=== PATIENT | female | born 1995 | race Caucasian/White ===

== ENCOUNTER 2022-01-05 22:04 | Emergency (ER) | payer OTHER ==
[~2022-01-05] VITALS: Ht 167.6 cm; Wt 76.7 kg
[~2022-01-05 22:04] MED LIST: DOCU-300 PO; FERR-252 PO; IBUP-974 PO
[2022-01-05 22:24] VITALS: BP 128/85
--- NOTE | 2022-01-05 22:33 | NUR ---
PT TAKEN TO BED 4
[2022-01-05] MEDS ORDERED: ACETAMINOPHEN EXTRA STRENGTH 500 MG TAB PO ONE ×2 (22:35)
[2022-01-05] MEDS ORDERED: ACETAMINOPHEN EXTRA STRENGTH 500 MG TAB ONE (22:36)
--- NOTE | 2022-01-05 22:37 | NUR ---
26 Y/O FEMALE BIBS FROM HOME, C/O FEVER, NAUSEA, AND BACK PAIN X3 DAYS. PT DENIESAPETITE, CP, OR COUGH. PT HAS TAKEN OTC TYLENOL AND IBUPROFEN FOR PAIN.LAST TOOK IBUPROFEN AT 1800. A/OX4, GCS-15; UNLABORED BREATHING AND SPEAKING IN FULL SENTENCES; AMBULATORY W/O ASSISTANCE. PT DENIES PMH/RX NKA
[2022-01-05] MEDS ORDERED: KETOROLAC 30 MG/ML VIAL IM ONE (23:25)
[2022-01-05 23:41] LABS: APPEARANCE,URINE SL CLOUDY (CLEAR); BILIRUBIN,URINE NEGATIVE (NEGATIVE); BLOOD, URINE 2+ (NEGATIVE); COLOR,URINE YELLOW (YELLOW); LEUKOCYTE ESTERASE ,URINE 2+ (NEGATIVE); NITRITE, URINE NEGATIVE (NEGATIVE); UGLUCOSE NEGATIVE (NEGATIVE)
[2022-01-05 23:53] LABS: RBC,URINE 0-5 /HPF (0-5); WBC,URINE TOO MANY TO COUNT /HPF (0-5)
[2022-01-06] MEDS ORDERED: cefTRIAXone 1,000 MG in LIDOCAINE MPF 1% 2.1 ML IM ONE (00:05)
--- NOTE | 2022-01-06 00:05 | NUR ---
ER MD AT BEDSIDE TALKING WITH PT
[2022-01-06] MEDS ORDERED: IBUP-2213 PO (00:23)
[2022-01-06] MEDS ORDERED: SULF-59 PO (00:23)
[2022-01-06] MEDS ORDERED: cefTRIAXone 1,000 MG VIAL ONE (00:25)
[2022-01-06] MEDS ORDERED: KETOROLAC 15 MG/ML VIAL IVP ONE (00:25)
[2022-01-06] MEDS ORDERED: HYDROcodone/APAP 7.5/325 MG 1 TAB PO ONE (01:55)
--- NOTE | 2022-01-06 02:02 | NUR ---
RESOURCE RECOVERY ENGINEER AT BEDSIDE
[2022-01-06 02:07] LABS: BASOPHILS % (AUTO) 0.2 % (0.0-2.0); EOSINOPHILS % (AUTO) 0.2 % (0.0-4.0); HEMATOCRIT 30.9 % (36-48); HEMOGLOBIN 10.1 g/dL (12.0-16.0); LYMPHOCYTES # (AUTO) 1.8 K/uL (2.5-16.5); LYMPHOCYTES % (AUTO) 14.2 % (20.5-51.1); MEAN CORPUSCULAR HEMOGLOBIN 26 pg (27-31); MEAN CORPUSCULAR HGB CONC 33 g/dL (33-37); MEAN CORPUSCULAR VOLUME 78.4 fL (80-94); MONOCYTES # (AUTO) 0.6 K/uL (0.8-1.0); MONOCYTES % (AUTO) 4.9 % (1.7-9.3); NEUTROPHILS # (AUTO) 10.5 K/uL (1.8-7.7); NEUTROPHILS % (AUTO) 80.5 % (42.2-75.2); PLATELET COUNT (AUTO) 278 K/uL (140-450); RED BLOOD CELL COUNT(AUTO) 3.95 MIL/uL (4.20-5.40); RED CELL DISTRIBUTION WIDTH 15.8 % (11.6-13.7)
[2022-01-06 02:36] LABS: ALBUMIN 2.8 g/dL (3.4-5.0); ANION GAP 9.2 (8-16); CARBON DIOXIDE 27.9 mmol/L (21-32); CREATININE 0.7 mg/dL (0.6-1.3); POTASSIUM 3.1 mmol/L (3.5-5.1); TOTAL BILIRUBIN 0.8 mg/dL (0.0-1.0)
[2022-01-06] MEDS ORDERED: POTASSIUM CHLORIDE 10 MEQ TABER PO ONE (03:10)
--- NOTE | 2022-01-06 03:12 | NUR ---
PT RETURN FROM CT
--- NOTE | 2022-01-06 07:15 | NUR ---
GAVE TRANSFER OF CARE REPORT TO BARRIE HAILE
--- NOTE | 2022-01-06 07:24 | NUR ---
REPORT RECIEVED FROM LATASHA LOPEZ
--- NOTE | 2022-01-06 08:07 | NUR ---
26YR OLD FEMALE C/O FLANK BACK PAIN X 3DAYS. PAIN 3. PT STATES HAVING A FEVER AND NAUSEA. DENIES PAIN WITH URINATION. DENIES CP SOB. PT RESTING IN BED RESP EVEN AND UNLABORED. PENDING CT RESULTS . PENDING DC. SIDE RAILS UP X2 BED AT LOWEST POSITION. NKDA NO MED HX
[2022-01-06 08:34] VITALS: BP 90/51
--- NOTE | 2022-01-06 08:34 | NUR ---
Patient discharged with v/s stable. Written and verbal after care instructions given and explained. Patient alert, oriented and verbalized understanding of instructions. Ambulatory with steady gait. All questions addressed prior to discharge. ID band removed. Patient advised to follow up with PMD. Rx of IBUPROFEN BACTRIM given. Patient educated on indication of medication including possible reaction and side effects. Opportunity to ask questions provided and answered.
--- NOTE | 2022-01-06 14:31 | NUR ---
Chart checked and completed. The patient's care was reviewed and supervised by Nuvia Jo RN.
[2022-01-09] MEDS ORDERED: CEPH500C16 PO (07:44)
== END 2022-01-06 08:34 | disposition home or self-care (01) ==
LOC: MED 22:04
DX: N10 Acute pyelonephritis (principal); F17.290 Nicotine dependence, other tobacco product, uncomplicated; Z79.899 Other long term (current) drug therapy
CPT/HCPCS: 36415; 74150; 80053; 81001; 81025; 83690; 85025; 87086; 96365; 96375; 99284; J0696; J1885